=== PATIENT | male | born 1980 | race Caucasian/White ===

== ENCOUNTER 2025-04-04 15:05 | Inpatient (IN) | payer MEDICAID, OTHER ==
[~2025-04-04] VITALS: Ht 165.1 cm; Wt 71.5 kg
--- NOTE | 2025-04-04 15:59 | ED.PDOC ---
GI ASSESSMENT HPI Comments 45 y/o M, with no prior medical history presents to the ED for CC of abdominal pain. Patient states, he as been experiencing LLQ abdominal pain with associated nausea, vomiting, and diarrhea x1day. Patient denies any recent change in diet, hematemesis, or constipation. No other symptoms or modifying factors are present at this time. Chief Complaint: Abdominal Pain Time Seen by MD: 15:45 Reviewed Notes: Nurses Notes, Medications, Allergies Allergies: Coded Allergies: NO KNOWN ALLERGIES (Unverified , 04/04/25) Information Source: Patient Mode of Arrival: Ambulatory Timing: Days Duration: Since onset Prehospital treatment: None Quality: Cramping Vomitus: Watery Stool: Watery Severity: Moderate Recent: None Recent Hx of: None Pain Location: LLQ Associated sign and symptoms: Nausea, Vomiting, Diarrhea, Abdominal Pain Past Medical History PAST MEDICAL HISTORY: Denies Surgical History: Denies all surgeries Family History Family History: Unknown Social History Smoker: Other (VAPE) Alcohol: Denies ETOH Use Drugs: Denies Drug Use Lives In: Home Constitutional: denies: chills, diaphoresis, fatigue, fever, malaise, sweats, weakness, others EENTM: denies: blurred vision, double vision, ear bleeding, ear discharge, ear drainage, ear pain, ear ringing, eye pain, eye redness, hearing loss, mouth pain, mouth swelling, nasal discharge, nose bleeding, nose congestion, nose pain, photophobia, tearing, throat pain, throat swelling, voice changes, others Respiratory: denies: cough, hemoptysis, orthopnea, SOB at rest, shortness of breath, SOB with excertion, stridor, wheezing, others Cardiovascular: denies: chest pain, dizzy spells, diaphoresis, Dyspnea on exertion, edema, irregular heart beat, left arm pain, lightheadedness, palpitations, PND, syncope, others Gastrointestinal: reports: abdominal pain, nausea, vomiting; denies: abdomen distended, blood streaked bowels, constipated, diarrhea, dysphagia, difficulty swallowing, hematemesis, melena, poor appetite, poor fluid intake, rectal bleeding, rectal pain, others Genitourinary: denies: burning, dysuria, flank pain, frequency, hematuria, incontinence, penile discharge, penile sore, pain, testicle pain, testicle swelling, urgency, others Neurological: denies: dizziness, fainting, headache, left sided numbness, left sided weakness, numbness, paresthesia, pre-existing deficit, right sided numbness, right sided weakness, seizure, speech problems, tingling, tremors, weakness, others Musculoskeletal: denies: back pain, gout, joint pain, joint swelling, muscle pain, muscle stiffness, neck pain, others Integumetry: denies: bruises, change in color, change in hair/nails, dryness, laceration, lesions, lumps, rash, wounds, others Allergic/Immunocompromised: denies: Difficulty Healing, Frequent Infections, Hives, Itching, others Hematologic/Lymphatic: denies: anemia, blood clots, easy bleeding, easy bruising, swollen glands, others Endocrine: denies: excessive hunger, excessive sweating, excessive thirst, excessive urination, flushing, intolerance to cold, intolerance to heat, unexplained weight gain, unexplained weight loss, others Psychiatric: denies: anxiety, bipolar disorder, depression, hopeless, panic disorder, schizophrenia, sleepless, suicidal, others All Other Systems: Reviewed and Negative Physical Exam General Appearance: No Apparent Distress, Normal HEENT: Normal ENT Inspection, Pharynx Normal Neck: Full Range of Motion, Non-Tender, Normal, Normal Inspection Respiratory: Chest Non-Tender, Lungs Clear, No Accessory Muscle Use, No Respiratory Distress, Normal Breath Sounds Cardiovascular: No Edema, No Murmur, No Gallop, Normal Peripheral Pulses, Regular Rate/Rhythm Breast Exam: Deferred Gastrointestinal: LLQ, No Organomegaly, No Pulsatile Mass, Normal Bowel Sounds, Soft, Tenderness Genitalia: Deferred Pelvic: Deferred Rectal: Deferred Extremities: No calf tenderness, Normal capillary refill, Normal inspection, Normal range of motion, Non-tender, No pedal edema Musculoskeletal : Apperance: Normal Neurologic: Alert, sales trader II-XII nml as Tested, No Motor Deficits, Normal Affect, Normal Mood, No Sensory Deficits Cerebellar Function: Normal Reflexes: Normal Skin: Dry, Normal Color, Warm Lymphatic: No Adenopathy Was a procedure done? Was a procedure done?: No GI differential Dx Differential Diagnosis: Bowel Obstruction, Cholangitis, Constipation, Diverticular disease, Inflammatory BD X-Ray, Labs, Meds, VS Vital Signs Date Time Temp Pulse Resp B/P (MAP) Pulse Ox O2 Delivery O2 Flow Rate FiO2 10/7/25 17:14 105 18 129/82 (98) 98 04/04/25 17:14 97 18 98 Room Air 04/04/25 15:09 98.3 95 19 125/78 99 98.3 Lab Test 04/04/25 16:28 04/04/25 16:00 Range/Units Urine Color Yellow Yellow Urine Clarity Clear Clear Urine pH 5.5 5.0-9.0 Urine Specific [place] 1.027 1.001-1.035 Urine Protein Negative Negative Urine Ketones Negative Negative Urine Blood 2+ H Negative /uL Urine Nitrite Negative Negative Urine Bilirubin Negative Negative Urine Urobilinogen 3 H Negative mg/dL Urine Leukocyte Esterase Negative Negative /uL Urine RBC 5 0 - 3 /hpf Urine Microscopic WBC 1 0-3 /HPF Urine Squamous Epithelial Cells Few <5 /hpf Urine Bacteria None seen None Seen /hpf Urine Mucus Few None Seen Urine Glucose Normal Normal mg/dL White Blood Count 16.4 H 4.4-10.8 10^3/uL Red Blood Count 4.97 4.5-5.90 10^6/uL Hemoglobin 15.7 13.5-17.5 g/dL Hematocrit 44.1 41.0-53.0 % Mean Corpuscular Volume 88.7 80.0-100.0 fL Mean Corpuscular Hemoglobin 31.5 28.0-32.0 pg Mean Corpuscular Hemoglobin Concent 35.6 32.0-36.0 g/dL Red Cell Distribution Width 12.4 11.8-14.3 % Platelet Count 249 140-450 10^3/uL Mean Platelet Volume 6.6 L 6.9-10.8 fL Neutrophils (%) (Auto) 92.3 H 37.0-80.0 % Lymphocytes (%) (Auto) 2.5 L 10.0-50.0 % Monocytes (%) (Auto) 4.7 0.0-12.0 % Eosinophils (%) (Auto) 0.0 0.0-7.0 % Basophils (%) (Auto) 0.5 0.0-2.0 % Neutrophils # (Auto) 15.1 H 1.6-8.6 10 ^3/uL Lymphocytes # (Auto) 0.4 0.4-5.4 10 ^3/uL Monocytes # (Auto) 0.8 0-1.3 10 ^3/uL Eosinophils # (Auto) 0 0-0.8 10 ^3/uL Basophils # (Auto) 0.1 0-0.2 10 ^3/uL Nucleated Red Blood Cells 0.0 % Sodium Level 142 136-145 mmol/L Potassium Level 4.0 3.5-5.1 mmol/L Chloride Level 105 98-107 mmol/L Carbon Dioxide Level 27 20-31 mmol/L Anion Gap 10 5-15 Blood Urea Nitrogen 7 L 9-23 mg/dL Creatinine 1.05 0.700-1.30 mg/dL Glomerular Filtration Rate Calc 89 >90 mL/min BUN/Creatinine Ratio 6.7 L 10.0-20.0 Serum Glucose 112 H 74-106 mg/dL Calcium Level 9.5 8.7-10.4 mg/dL Total Bilirubin 0.9 0.2-1.0 mg/dL Aspartate Amino Transferase (AST) 17 13-40 U/L Alanine Aminotransferase (ALT) 13 7-40 U/L Alkaline Phosphatase 84 46-116 U/L Total Protein 7.4 5.7-8.2 g/dL Albumin 4.6 3.2-4.8 g/dL [place] [id number] Ph: [phone] DIAGNOSTIC IMAGING Diagnostic Imaging Report : [id number] Signed PATIENT: ANGELIC SAHU ACCT: [id number] UNIT: [id number] : 1980 LOC: ER ROOM / BED: / AGE / SEX: 45 / M ADM STATUS: REG ER SERVICE 1541 ORDERING PHYSICIAN: BASIL BOLANOS MD PROCEDURE(s): ABPL - CT AB PEL WO CON-NO ORAL OR IV REASON: llq pain ORDER NUMBER(s): [id number], ACCESSION NUMBER(s): [id number] EXAM: CT CT AB PEL WO CON-NO ORAL OR IV HISTORY: llq pain COMPARISON: None TECHNIQUE: Helical CT images of the abdomen and pelvis were performed without IV contrast. Sagittal and coronal reformatted images were obtained. This CT exam was performed using one or more of the following dose reduction techniques: Automated exposure control, adjustment of the mA and/or kv according to patient size, or the use of iterative reconstruction techniques. Radiation Dose: Abdomen/Pelvis: CTDIvol 7.38 mGy, DLP 196.24 mGy*cm. FINDINGS: CT abdomen: The lung bases are clear. The heart is not enlarged. There is mild wall thickening about the GE junction. The noncontrast liver, spleen, gallbladde r, pancreas, right kidney, and adrenal glands are unremarkable. There is a punctate nonobstructing left renal midpole calculus ( image 30, series 2). No abdominal aortic aneurysm. CT pelvis: No abnormal bowel dilatation or free air. There are sigmoid colon diverticula with fluid and fat stranding adjacent to the sigmoid colon, consistent with acute diverticulitis. There are small pockets of extraluminal gas without evidence of formed abscess at this time (images 56-64, series 2).. The appendix and urinary bladder are unremarkable. The prostate is mildly enlarged. There is mild lumbar degenerative disc disease. IMPRESSION: 1. Acute sigmoid diverticulitis with small pockets of extraluminal gas present, without evidence of formed pericolic abscess at this time. 2. Mild wall thickening about the GE junction may be inflammatory. 3. Nonobstructing left nephrolithiasis. 4. Mild prostatic enlargement. 5. No evidence of bowel obstruction, acute appendicitis, or other acute process in the abdomen or pelvis. ATED BY: JAGDEPE MATTHEWS MD DICTATED DATE/TIME: 04/04/251621 SIGNED BY: JAGDEEP MATTHEWS MD SIGNED DATE/TIME: 04/04/251621 CC: Time of 1ST Reevaluation: 16:05 Reevaluation 1ST: Unchanged Time of 2ND Reevaluation: 18:34 Reevaluation 2ND: Unchanged Patient Education/Counseling: Diagnosis, Treatment, Prognosis, Need For Follow Up Family Education/Counseling: No Family Present Comments This is a patient who presents with diverticulitis. He has elevated heart rate and leukocytosis. These are recognized at around 5:40 p.m.. of the above conditions.. Sepsis order was initiated. Patient will be admitted for treatment Additional Information The following tests were ordered, and results were reviewed by me: CBC, CMP, UA, CT ABD PEL I reviewed and agreed with the following test results read by other provider: CT ABD PEL I discussed treatments and results with medical personnel and: PATIENT Comprehensive systems review obtained and negative except for what is stated in the HPI. SEPSIS Sepsis Screen Date sepsis recognized/suspect: Apr 04, 2025 Time Sepsis recognized/suspect: 1509 Recent Procedure: No On Antibiotic Therapy: No Respiratory Rate >20: No Heart Rate >90: Yes Temp<36 C (96.8 F) or >38.3 C: No SBP <90 or MAP <65 mmHG: No New Acute Mental Status Change: No Is the patient on CPAP, BIPAP,: No Physician Orders Ct Ab Pel Wo Con-No Oral Or Iv (04/04/25 15:41) Vital Signs Date Time Temp Pulse Resp B/P (MAP) Pulse Ox O2 Delivery O2 Flow Rate FiO2 04/04/25 17:14 105 18 129/82 (98) 98 04/04/25 17:14 97 18 98 Room Air 04/04/25 15:09 98.3 95 19 125/78 99 98.3 Laboratory Tests Test 04/04/25 16:00 White Blood Count 16.4 10^3/uL (4.4-10.8) H Departure 1 Departure Time of Disposition: 18:34 Impression: Primary Impression: Diverticulitis of intestine Additional Impression: Sepsis Disposition: ADMITTED INPATIENT Admit to: Med Surg Condition: Serious Discharged With: Self Critical Care Note Critical Care Time?: Yes (55 min-critical care time only) Critical care comment: due to concerns for patient's condition deteriorating, the care required my highest level of attention and readiness to intervene. i assessed the patient's condition, ordered the proper tests and treatments, reassessed for response and reviewed the results. i communicated with medical personnel and formulated a plan of care. total critical care time does not include any procedures Stability Stability form required: No Heart Score Heart Score: Heart Score Response (Comments) Value History N/A 0 EKG N/A 0 Age N/A 0 Risk Factors N/A 0 Troponin N/A 0 Total 0 I personally scribed for BASIL BOLANOS MD ([email or web address]) on 04/04/25 at 15:59. Electronically submitted by Adrienne Sanchez ([email or web address]). I personally scribed for BASIL BOLANOS MD ([email or web address]) on 04/04/25 at 16:56. Electronically submitted by Adrienne Sanchez ([email or web address]). I personally scribed for BASIL BOLANOS MD ([email or web address]) on 04/04/25 at 16:56. Electronically submitted by Adrienne Sanchez ([email or web address]). BASIL BOLANOS MD Apr 04, 2025 15:59
[2025-04-04 16:07] LABS: Hematocrit 44.1 % (41.0-53.0); Hemoglobin 15.7 g/dL (13.5-17.5); Mean Corpuscular Hemoglobin 31.5 pg (28.0-32.0); Mean Corpuscular Volume 88.7 fL (80.0-100.0); Nucleated Red Blood Cells % 0.0 %
--- NOTE | 2025-04-04 16:24 | DVH ---
EXAM: CT CT AB PEL WO CON-NO ORAL OR IV HISTORY: llq pain COMPARISON: None TECHNIQUE: Helical CT images of the abdomen and pelvis were performed without IV contrast. Sagittal a nd coronal reformatted images were obtained. This CT exam was performed using one or more of the foll owing dose reduction techniques: Automated exposure control, adjustment of the mA and/or kv according to patient size, or the use of iterative reconstruction techniques. Radiation Dose: Abdomen/Pelvis: CTDIvol 7.38 mGy, DLP 196.24 mGy*cm. FINDINGS: CT abdomen: The lung bases are clear. The heart is not enlarged. There is mild wall thickening about the GE junction. The noncontrast liver, spleen, gallbladder, pancreas, right kidney, and adrenal glan ds are unremarkable. There is a punctate nonobstructing left renal midpole calculus ( image 30, serie s 2). No abdominal aortic aneurysm. CT pelvis: No abnormal bowel dilatation or free air. There are sigmoid colon diverticula with fluid a nd fat stranding adjacent to the sigmoid colon, consistent with acute diverticulitis. There are smal l pockets of extraluminal gas without evidence of formed abscess at this time (images 56-64, series 2 ).. The appendix and urinary bladder are unremarkable. The prostate is mildly enlarged. There is mild lumbar degenerative disc disease. IMPRESSION: 1. Acute sigmoid diverticulitis with small pockets of extraluminal gas present, without evidence of f ormed pericolic abscess at this time. 2. Mild wall thickening about the GE junction may be inflammatory. 3. Nonobstructing left nephrolithiasis. 4. Mild prostatic enlargement. 5. No evidence of bowel obstruction, acute appendicitis, or other acute process in the abdomen or pel vis.
[2025-04-04 16:27] LABS: Alanine Aminotransferase 13 U/L (7-40); Albumin 4.6 g/dL (3.2-4.8); Alkaline Phosphatase 84 U/L (46-116); Anion Gap 10 (5-15); BUN/Creatinine Ratio 6.7 (10.0-20.0); Bilirubin, Total 0.9 mg/dL (0.2-1.0); Blood Urea Nitrogen 7 mg/dL (9-23); Calcium 9.5 mg/dL (8.7-10.4); Carbon Dioxide 27 mmol/L (20-31); Chloride 105 mmol/L (98-107); Glucose 112 mg/dL (74-106); Potassium 4.0 mmol/L (3.5-5.1); Sodium 142 mmol/L (136-145); Total Protein 7.4 g/dL (5.7-8.2)
[2025-04-04 16:49] LABS: Urine Protein, UAD Negative (Negative)
[2025-04-04] MEDS: ONDANSETRON HCL 4 MG/2 ML VIAL IV ONE (19:19)
[2025-04-04] MEDS: MORPHINE SULFATE 4 MG/ML SYR/VIAL IV ONE (19:20)
[2025-04-04] MEDS ORDERED: ACETAMINOPHEN 325 MG TAB PO PRN (20:15)
[2025-04-04] MEDS: CEFEPIME 1GM/50ML 50 ML IV ONE ×2 (20:24→20:38)
[2025-04-04 21:36] VITALS: BP 114/69; PULSE 105; RESP 17; TEMP 98; O2SAT 97
[2025-04-04] MEDS: HYDROcodone-ACET 5/325MG TAB PO PRN (21:48)
--- NOTE | 2025-04-04 22:03 | DVHHP2 ---
History of Present Illness Reason for Visit: Abdominal pain History of Present Illness 45-year-old male presents for evaluation of abdominal pain. Patient endorses a one day history of left lower quadrant cramp like abdominal pain with associated nausea and vomiting. No fever or chills. No other acute complaints. Past Medical History Diverticulitis Past Surgical History Denies Family History Noncontributory Smoke: Quit (Vape) ALCOHOL: none Drugs: None Lives: with Family Review of Systems Review of Systems Review of systems are currently negative otherwise addressed in HPI. Allergies: Coded Allergies: NO KNOWN ALLERGIES (Unverified , 04/04/25) Medications Current Medications Medications Dose Ordered Sig/Juany Route Start Time Stop Time Status Last Admin Dose Admin Cefepime HCl 50 ml @ 12.5 mls/hr Q8HR IV 04/05/25 06:00 Ceftriaxone Sodium 50 ml @ 100 mls/hr DAILY@09 IV 04/05/25 09:00 Metronidazole 100 ml @ 100 mls/hr Q8HR IV 04/04/25 22:00 Acetaminophen/ Hydrocodone Bitart 1 tab Q4HP PRN PO 04/04/25 20:15 04/04/25 21:48 1 TAB Ondansetron HCl 4 mg Q4HP PRN IV 04/04/25 20:15 Acetaminophen 650 mg Q6HP PRN PO 04/04/25 20:15 Morphine Sulfate 2 mg Q6HPRN PRN IV 04/04/25 20:30 Exam Vital Signs Vital Signs Date Time Temp Pulse Resp B/P (MAP) Pulse Ox O2 Delivery O2 Flow Rate FiO2 04/04/25 21:36 98.0 105 17 114/69 (84) 97 98.0 04/04/25 17:14 Room Air Exam Gen: 45-year-old male in mild distress Skin: Warm, dry, normal color and texture, no rash. HEENT: Normocephalic atraumatic, mucous membranes moist and pink. Neck: Cervical and supraclavicular nodes normal without enlargement, trachea is midline, thyroid gland is normal without masses. Pulmonary: Clear to auscultation and percussion bilaterally. Cardiac: Regular rate and rhythm. No murmur Abdomen: Soft, left lower quadrant tenderness, nondistended, bowel sounds present all 4 quadrants, no guarding, no rigidity, no organomegaly. Extremities: No cyanosis, clubbing, no edema Neuro: Cranial nerves II through XII grossly intact, normal affect and speech, no focal motor deficits. Labs/Xrays ORDERING PHYSICIAN: BASIL BOLANOS MD PROCEDURE(s): ABPL - CT AB PEL WO CON-NO ORAL OR IV REASON: llq pain ORDER NUMBER(s): [id number], ACCESSION NUMBER(s): [id number] EXAM: CT CT AB PEL WO CON-NO ORAL OR IV HISTORY: llq pain COMPARISON: None TECHNIQUE: Helical CT images of the abdomen and pelvis were performed without IV contrast. Sagittal and coronal reformatted images were obtained. This CT exam was performed using one or more of the following dose reduction techniques: Automated exposure control, adjustment of the mA and/or kv according to patient size, or the use of iterative reconstruction techniques. Radiation Dose: Abdomen/Pelvis: CTDIvol 7.38 mGy, DLP 196.24 mGy*cm. FINDINGS: CT abdomen: The lung bases are clear. The heart is not enlarged. There is mild wall thickening about the GE junction. The noncontrast liver, spleen, gallbladder, pancreas, right kidney, and adrenal glands are unremarkable. There is a punctate nonobstructing left renal midpole calculus ( image 30, series 2). No abdominal aortic aneurysm. CT pelvis: No abnormal bowel dilatation or free air. There are sigmoid colon diverticula with fluid and fat stranding adjacent to the sigmoid colon, consistent with acute diverticulitis. There are small pockets of extraluminal gas without evidence of formed abscess at this time (images 56-64, series 2).. The appendix and urinary bladder are unremarkable. The prostate is mildly enlarged. There is mild lumbar degenerative disc disease. IMPRESSION: 1. Acute sigmoid diverticulitis with small pockets of extraluminal gas present, without evidence of formed pericolic abscess at this time. 2. Mild wall thickening about the GE junction may be inflammatory. 3. Nonobstructing left nephrolithiasis. 4. Mild prostatic enlargement. 5. No evidence of bowel obstruction, acute appendicitis, or other acute process in the abdomen or pelvis. Labs Test 04/04/25 18:46 04/04/25 16:28 04/04/25 16:00 Range/Units Lactic Acid Level 1.8 0.4-2.0 mmol/L Urine Color Yellow Yellow Urine Clarity Clear Clear Urine pH 5.5 5.0-9.0 Urine Specific [place] 1.027 1.001-1.035 Urine Protein Negative Negative Urine Ketones Negative Negative Urine Blood 2+ H Negative /uL Urine Nitrite Negative Negative Urine Bilirubin Negative Negative Urine Urobilinogen 3 H Negative mg/dL Urine Leukocyte Esterase Negative Negative /uL Urine RBC 5 0 - 3 /hpf Urine Microscopic WBC 1 0-3 /HPF Urine Squamous Epithelial Cells Few <5 /hpf Urine Bacteria None seen None Seen /hpf Urine Mucus Few None Seen Urine Glucose Normal Normal mg/dL White Blood Count 16.4 H 4.4-10.8 10^3/uL Red Blood Count 4.97 4.5-5.90 10^6/uL Hemoglobin 15.7 13.5-17.5 g/dL Hematocrit 44.1 41.0-53.0 % Mean Corpuscular Volume 88.7 80.0-100.0 fL Mean Corpuscular Hemoglobin 31.5 28.0-32.0 pg Mean Corpuscular Hemoglobin Concent 35.6 32.0-36.0 g/dL Red Cell Distribution Width 12.4 11.8-14.3 % Platelet Count 249 140-450 10^3/uL Mean Platelet Volume 6.6 L 6.9-10.8 fL Neutrophils (%) (Auto) 92.3 H 37.0-80.0 % Lymphocytes (%) (Auto) 2.5 L 10.0-50.0 % Monocytes (%) (Auto) 4.7 0.0-12.0 % Eosinophils (%) (Auto) 0.0 0.0-7.0 % Basophils (%) (Auto) 0.5 0.0-2.0 % Neutrophils # (Auto) 15.1 H 1.6-8.6 10 ^3/uL Lymphocytes # (Auto) 0.4 0.4-5.4 10 ^3/uL Monocytes # (Auto) 0.8 0-1.3 10 ^3/uL Eosinophils # (Auto) 0 0-0.8 10 ^3/uL Basophils # (Auto) 0.1 0-0.2 10 ^3/uL Nucleated Red Blood Cells 0.0 % Sodium Level 142 136-145 mmol/L Potassium Level 4.0 3.5-5.1 mmol/L Chloride Level 105 98-107 mmol/L Carbon Dioxide Level 27 20-31 mmol/L Anion Gap 10 5-15 Blood Urea Nitrogen 7 L 9-23 mg/dL Creatinine 1.05 0.700-1.30 mg/dL Glomerular Filtration Rate Calc 89 >90 mL/min BUN/Creatinine Ratio 6.7 L 10.0-20.0 Serum Glucose 112 H 74-106 mg/dL Calcium Level 9.5 8.7-10.4 mg/dL Total Bilirubin 0.9 0.2-1.0 mg/dL Aspartate Amino Transferase (AST) 17 13-40 U/L Alanine Aminotransferase (ALT) 13 7-40 U/L Alkaline Phosphatase 84 46-116 U/L Total Protein 7.4 5.7-8.2 g/dL Albumin 4.6 3.2-4.8 g/dL SEPSIS Sepsis Screen Date sepsis recognized/suspect: Apr 04, 2025 Time Sepsis recognized/suspect: 1509 Recent Procedure: No On Antibiotic Therapy: No Respiratory Rate >20: No Heart Rate >90: Yes Temp<36 C (96.8 F) or >38.3 C: No SBP <90 or MAP <65 mmHG: No New Acute Mental Status Change: No Is the patient on CPAP, BIPAP,: No Physician Orders Ct Ab Pel Wo Con-No Oral Or Iv (04/04/25 15:41) Urinalysis (04/04/25 18:33) Accucheck (04/04/25 18:33) Blood Culture (04/04/25 18:33) Notify Md If Map <65 Or Bp<90 (04/04/25 18:33) If Map<65 Start Vasopressor (04/04/25 18:33) Sepsis Reassesment After Fluid (04/04/25 19:33) Cefepime 1gm/50ml (Maxipime 1gm/50ml) (04/05/25 06:00) Admit (04/04/25 19:59) Ceftriaxone 1gm/50ml (Rocephin) (04/05/25 09:00) Metronidazole 500mg/100ml (Flagyl 500mg/ (04/04/25 22:00) * Gi [facility] Closing Coordinator (04/04/25 20:02) Hydrocodone-Acet 5/325mg Tab ([place] 5/32 (04/04/25 20:15) Ondansetron Hcl (Zofran) (04/04/25 20:15) Complete Blood Count (04/05/25 04:00) Condition: Stable (04/04/25 20:02) Acetaminophen Tablet (Tylenol Tablet) (04/04/25 20:15) Clear Liq Diet (04/05/25 Breakfast) Bedrest With Bathroom Privileg (04/04/25 20:02) Basic Metabolic Panel (04/05/25 04:00) Morphine Sulfate Injection (04/04/25 20:30) Vital Signs Date Time Temp Pulse Resp B/P (MAP) Pulse Ox O2 Delivery O2 Flow Rate FiO2 04/04/25 21:36 98.0 105 17 114/69 (84) 97 98.0 04/04/25 20:33 98.6 110 18 123/82 (96) 97 98.6 04/04/25 19:20 98 18 113/60 04/04/25 19:09 98 18 113/60 (77) 100 04/04/25 17:14 105 18 129/82 (98) 98 04/04/25 17:14 97 18 98 Room Air 04/04/25 15:09 98.3 95 19 125/78 99 98.3 Laboratory Tests Test 04/04/25 16:00 04/04/25 18:46 White Blood Count 16.4 10^3/uL (4.4-10.8) H Lactic Acid Level 1.8 mmol/L (0.4-2.0) Medications Medications Dose Ordered Sig/Juany Route Start Time Stop Time Status Last Admin Dose Admin Acetaminophen/ Hydrocodone Bitart 1 tab Q4HP PRN PO 04/04/25 20:15 04/04/25 21:48 1 TAB Cefepime HCl 50 ml @ 50 mls/hr ONCE ONCE IV 04/04/25 19:15 04/04/25 20:14 DC 04/04/25 20:24 50 MLS/HR Metronidazole 100 ml @ 100 mls/hr ONCE ONCE IV 04/04/25 18:45 04/04/25 19:44 DC 04/04/25 19:20 100 MLS/HR Morphine Sulfate 4 mg ONCE ONCE IV 04/04/25 18:45 10/7/25 18:46 DC 04/04/25 19:20 4 MG Ondansetron HCl 4 mg ONCE ONCE IV 04/04/25 18:45 04/04/25 18:46 DC 04/04/25 19:19 4 MG Assessment/Plan Assessment/Plan Assessment Acute diverticulitis Acute abdominal pain Leukocytosis Acute kidney injury Plan Admit the patient to Med surge to the hospitalist GI consult Clear liquid diet Rocephin/Flagyl Pain management Continue treatment per orders. Plan discussed with: Patient My Orders Orders - XENA JUSTICE Procedure Category Date Status Time Admit ADMIT 04/04/25 Transmitted 19:59 Ceftriaxone 1gm/50ml PHA 04/05/25 In Process (Rocephin) 09:00 Metronidazole PHA 04/04/25 In Process 500mg/100ml (Flagyl 22:00 * [facility] Closing Coordinator CONS 04/04/25 Transmitted 20:02 Hydrocodone-Acet PHA 04/04/25 In Process 5/325mg Tab ([place] 20:15 Ondansetron Hcl PHA 04/04/25 In Process (Zofran) 20:15 Complete Blood Count LAB 04/05/25 Verified 04:00 Condition: Stable ROSANNA 04/04/25 In Process 20:02 Acetaminophen Tablet PHA 04/04/25 In Process (Tylenol Tablet) 20:15 Clear Liq Diet DIET 04/05/25 Transmitted Breakfast Bedrest With Bathroom ROSANNA 04/04/25 In Process Privileg 20:02 Basic Metabolic Panel LAB 04/05/25 Verified 04:00 Morphine Sulfate PHA 04/04/25 In Process Injection 20:30 Date of Service: Apr 04, 2025 Billing Provider: XENA JUSTICE Common Visit Codes: [id number] INP/OBS CARE (MOD) XENA JUSTICE Apr 04, 2025 22:03
[2025-04-04 22:14] VITALS: RESP 15
[2025-04-04] MEDS: LACTATED RINGER'S 1,850 ML IV ONE (22:18)
[2025-04-05] VITALS (9 sets, daily range): BP systolic 111–130; BP diastolic 65–79; PULSE 82–97; RESP 16–18; TEMP 97.9–98.9; O2SAT 95–98
[2025-04-05] MEDS: CEFEPIME 1GM/50ML 50 ML IV SCH (05:44)
[2025-04-05 07:07] LABS: Hematocrit 38.3 % (41.0-53.0); Hemoglobin 13.8 g/dL (13.5-17.5); Mean Corpuscular Hemoglobin 32.1 pg (28.0-32.0); Mean Corpuscular Volume 89.2 fL (80.0-100.0); Nucleated Red Blood Cells % 0.0 %
[2025-04-05 07:15] LABS: Chloride 104 mmol/L (98-107); Potassium 3.9 mmol/L (3.5-5.1); Sodium 141 mmol/L (136-145)
[2025-04-05 07:16] LABS: Anion Gap 10 (5-15); Calcium 9.1 mg/dL (8.7-10.4); Carbon Dioxide 27 mmol/L (20-31)
[2025-04-05 07:21] LABS: BUN/Creatinine Ratio 8.8 (10.0-20.0)
[2025-04-05 07:24] LABS: Blood Urea Nitrogen 9 mg/dL (9-23); Glucose 110 mg/dL (74-106)
[2025-04-05] MEDS: MORPHINE SULFATE 4 MG/ML SYR/VIAL IV PRN (09:34)
--- NOTE | 2025-04-05 13:40 | DVHINCON2 ---
GI Consult Consult Note GI consult note Date of Consultation: 04/05/2025 Chief Complaint: Diverticulitis Referring Physician: Michel CABRERA H&P: 45-year-old male admitted with complains of abdominal pain mostly in the left lower quadrant for one day. Patient had some nausea and vomiting yesterday none today. Denies fevers or chills. Had similar episode which was milder in nature many years ago. No colonoscopy in past Past Medical History: Diverticulitis Past Surgical History: Denies Social History: NO smoking, drinking ETOH and use of illegal drugs. Family History: Noncontributory Review of Systems: Constitutional: no fever, chill, weight loss HEENT: no eye pain, no hearing loss, no oral lesion, no scleral icterus Heart: no chest pain, no chest pressure Lung: no cough, no dyspnea with exertion Abdomen: see HPI Physical exam: General: NAD, AAOX3 Chest: lung good clear to auscultation Heart: RRR, no murmur Abdomen: non-distended, moderate left lower quadrant tenderness to palpation, +BS Labs: Labs Test 04/05/25 06:41 04/04/25 18:46 04/04/25 16:28 04/04/25 16:00 Range/Units White Blood Count 12.9 H 4.4-10.8 10^3/uL Red Blood Count 4.29 L 4.5-5.90 10^6/uL Hemoglobin 13.8 13.5-17.5 g/dL Hematocrit 38.3 #L 41.0-53.0 % Mean Corpuscular Volume 89.2 80.0-100.0 fL Mean Corpuscular Hemoglobin 32.1 H 28.0-32.0 pg Mean Corpuscular Hemoglobin Concent 36.0 32.0-36.0 g/dL Red Cell Distribution Width 12.5 11.8-14.3 % Platelet Count 179 140-450 10^3/uL Mean Platelet Volume 6.8 L 6.9-10.8 fL Neutrophils (%) (Auto) 86.7 H 37.0-80.0 % Lymphocytes (%) (Auto) 7.5 L 10.0-50.0 % Monocytes (%) (Auto) 5.5 0.0-12.0 % Eosinophils (%) (Auto) 0.1 0.0-7.0 % Basophils (%) (Auto) 0.2 0.0-2.0 % Neutrophils # (Auto) 11.2 H 1.6-8.6 10 ^3/uL Lymphocytes # (Auto) 1.0 0.4-5.4 10 ^3/uL Monocytes # (Auto) 0.7 0-1.3 10 ^3/uL Eosinophils # (Auto) 0 0-0.8 10 ^3/uL Basophils # (Auto) 0 0-0.2 10 ^3/uL Nucleated Red Blood Cells 0.0 % Sodium Level 141 136-145 mmol/L Potassium Level 3.9 3.5-5.1 mmol/L Chloride Level 104 98-107 mmol/L Carbon Dioxide Level 27 20-31 mmol/L Anion Gap 10 5-15 Blood Urea Nitrogen 9 9-23 mg/dL Creatinine 1.02 0.700-1.30 mg/dL Glomerular Filtration Rate Calc 92 >90 mL/min BUN/Creatinine Ratio 8.8 L 10.0-20.0 Serum Glucose 110 H 74-106 mg/dL Calcium Level 9.1 8.7-10.4 mg/dL Lactic Acid Level 1.8 0.4-2.0 mmol/L Urine Color Yellow Yellow Urine Clarity Clear Clear Urine pH 5.5 5.0-9.0 Urine Specific [place] 1.027 1.001-1.035 Urine Protein Negative Negative Urine Ketones Negative Negative Urine Blood 2+ H Negative /uL Urine Nitrite Negative Negative Urine Bilirubin Negative Negative Urine Urobilinogen 3 H Negative mg/dL Urine Leukocyte Esterase Negative Negative /uL Urine RBC 5 0 - 3 /hpf Urine Microscopic WBC 1 0-3 /HPF Urine Squamous Epithelial Cells Few <5 /hpf Urine Bacteria None seen None Seen /hpf Urine Mucus Few None Seen Urine Glucose Normal Normal mg/dL Total Bilirubin 0.9 0.2-1.0 mg/dL Aspartate Amino Transferase (AST) 17 13-40 U/L Alanine Aminotransferase (ALT) 13 7-40 U/L Alkaline Phosphatase 84 46-116 U/L Total Protein 7.4 5.7-8.2 g/dL Albumin 4.6 3.2-4.8 g/dL Imaging: CT abdomen pelvis IMPRESSION: 1. Acute sigmoid diverticulitis with small pockets of extraluminal gas present, without evidence of formed pericolic abscess at this time. 2. Mild wall thickening about the GE junction may be inflammatory. 3. Nonobstructing left nephrolithiasis. 4. Mild prostatic enlargement. 5. No evidence of bowel obstruction, acute appendicitis, or other acute process in the abdomen or pelvis. Assessment: Acute diverticulitis Abdominal pain Leukocytosis Plan: Discussed with Dr. Denney IV antibiotic Clear liquid diet only We will continue to monitor patient Outpatient GI follow-up for elective colonoscopy when symptoms improve Thank you for this consult Date of Service: Apr 05, 2025 Billing Provider: CAREY THAKKAR Common Visit Codes: CONSULT ONLY Consultation Codes: [id number] CONSULT <60MIN CAREY THAKKAR Apr 05, 2025 13:40
--- NOTE | 2025-04-05 14:01 | MEDREC ---
[facility] ASP Intervention Section I [facility] ASP Intervention: Duplication of therapy (Patient currently on both ceftriaxone and cefepime. Due to duplication of therapy, please consider discontinuing one when clinically appropriate.) ALEKS IBARRA [facility] RESIDENT Apr 05, 2025 14:01
--- NOTE | 2025-04-05 16:06 | DVHPN2 ---
Subjective I am assuming the care of the patient from today onwards patient is here for diverticulitis currently on IV antibiotics and clear liquid diet. Changes from previous H/P or p: No Changes Objective Vitals Vital Signs Date Time Temp Pulse Resp B/P (MAP) Pulse Ox O2 Delivery O2 Flow Rate FiO2 04/05/25 15:39 75 16 113/80 04/05/25 14:36 97.9 97 97.9 04/05/25 08:00 Room Air* 0 21 Intake/Output Intake and Output 04/05/25 07:00 Intake Total 2300 ml Balance 2300 ml Intake Oral 300 ml IV Total 2000 ml # Voids 3 Exam HEENT pupils are reactive Neck is supple CV is S1-S2 regular rate and rhythm Respiratory diminished breath sound bases GI posterior bowel sounds soft nondistended mildly tender in the left lower quadrant with a posterior guarding no rigidity 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 Medications Current Medications Medications Dose Ordered Sig/Juany Route Start Time Stop Time Status Last Admin Dose Admin Cefepime HCl 50 ml @ 12.5 mls/hr Q8HR IV 04/05/25 06:00 Hold 04/05/25 05:44 12.5 MLS/HR Ceftriaxone Sodium 50 ml @ 100 mls/hr DAILY@09 IV 04/05/25 09:00 04/05/25 09:23 100 MLS/HR Acetaminophen/ Hydrocodone Bitart 1 tab Q4HP PRN PO 04/04/25 20:15 04/05/25 03:31 1 TAB Ondansetron HCl 4 mg Q4HP PRN IV 04/04/25 20:15 Acetaminophen 650 mg Q6HP PRN PO 04/04/25 20:15 Morphine Sulfate 2 mg Q6HPRN PRN IV 04/04/25 20:30 04/05/25 15:39 2 MG Metronidazole 100 ml @ 100 mls/hr Q8H IV 04/05/25 03:30 04/05/25 11:12 100 MLS/HR Laboratory Results Laboratory Tests 04/05/25 06:41 Chemistry Test 04/05/25 06:41 Calcium Level 9.1 mg/dL (8.7-10.4) Urinalysis Test 04/04/25 16:28 Urine Color Yellow (Yellow) Urine Clarity Clear (Clear) Urine pH 5.5 (5.0-9.0) Urine Specific [place] 1.027 (1.001-1.035) Urine Protein Negative (Negative) Urine Ketones Negative (Negative) Urine Blood 2+ /uL (Negative) H Urine Nitrite Negative (Negative) Urine Bilirubin Negative (Negative) Urine Urobilinogen 3 mg/dL (Negative) H Urine Leukocyte Esterase Negative /uL (Negative) Urine RBC 5 /hpf (0 - 3) Urine Microscopic WBC 1 /HPF (0-3) Urine Squamous Epithelial Cells Few /hpf (<5) Urine Bacteria None seen /hpf (None Seen) Urine Mucus Few (None Seen) Urine Glucose Normal mg/dL (Normal) Assessment/Plan Assessment/Plan 45-year-old male with a previous history of mild diverticulitis years ago presented to the hospital with a left lower quadrant abdominal pain associated with the nausea found to have 1. Acute sigmoid colon diverticulitis with some paucity of air 2. Leukocytosis likely reactive 3.Previous history of mild diverticulitis in the past years ago 4. History of tobacco use disorder -IV antibiotics, clear liquid diet as tolerated, GI consult appreciated, patient needs outpatient colonoscopy in 6-8 weeks. Plan discussed with: Patient Date of Service: Apr 05, 2025 Billing Provider: SAIGE TANNER MD Common Visit Codes: [id number] INP/OBS CARE(MOD) SAIGE TANNER MD Apr 05, 2025 16:06
[2025-04-05] MEDS: ONDANSETRON HCL 4 MG/2 ML VIAL IV PRN (21:44)
[2025-04-06] VITALS (8 sets, daily range): BP systolic 104–133; BP diastolic 59–91; PULSE 70–103; RESP 16–19; TEMP 96.6–99.2; O2SAT 16–97
--- NOTE | 2025-04-06 14:11 | DVHPN2 ---
Subjective Patient admits to improving abdominal pain Only able to tolerate small sips of his clear liquid diet at a time, otherwise having worsening GERD symptoms No nausea or vomiting. Denies hematemesis Patient's last bowel movement today which is still loose in nature Changes from previous H/P or p: No Changes Objective Vitals Vital Signs Date Time Temp Pulse Resp B/P (MAP) Pulse Ox O2 Delivery O2 Flow Rate FiO2 04/06/25 09:00 98.1 81 16 128/81 (97) 16 98.1 04/05/25 20:29 Room Air* 0 21 Intake/Output Intake and Output 04/06/25 06:59 Intake Total 1150 ml Output Total 750 ml Balance 400 ml Intake Oral 200 ml IV Total 350 ml Other 600 ml Output Urine Total 750 ml # Voids 3 Exam General: NAD, AAOX3 Chest: lung good clear to auscultation Heart: RRR, no murmur Abdomen: non-distended, mild to moderate left lower quadrant tenderness to palpation, +BS Medications Current Medications Medications Dose Ordered Sig/Juany Route Start Time Stop Time Status Last Admin Dose Admin Cefepime HCl 50 ml @ 12.5 mls/hr Q8HR IV 04/05/25 06:00 Hold 04/05/25 05:44 12.5 MLS/HR Ceftriaxone Sodium 50 ml @ 100 mls/hr DAILY@09 IV 04/05/25 09:00 04/06/25 10:53 100 MLS/HR Acetaminophen/ Hydrocodone Bitart 1 tab Q4HP PRN PO 04/04/25 20:15 04/05/25 03:31 1 TAB Ondansetron HCl 4 mg Q4HP PRN IV 04/04/25 20:15 04/06/25 03:51 4 MG Acetaminophen 650 mg Q6HP PRN PO 04/04/25 20:15 Morphine Sulfate 2 mg Q6HPRN PRN IV 04/04/25 20:30 04/06/25 04:00 2 MG Metronidazole 100 ml @ 100 mls/hr Q8H IV 04/05/25 03:30 04/06/25 10:53 100 MLS/HR Laboratory Results Laboratory Tests 04/05/25 06:41 Urinalysis Test 04/04/25 16:28 Urine Color Yellow (Yellow) Urine Clarity Clear (Clear) Urine pH 5.5 (5.0-9.0) Urine Specific [place] 1.027 (1.001-1.035) Urine Protein Negative (Negative) Urine Ketones Negative (Negative) Urine Blood 2+ /uL (Negative) H Urine Nitrite Negative (Negative) Urine Bilirubin Negative (Negative) Urine Urobilinogen 3 mg/dL (Negative) H Urine Leukocyte Esterase Negative /uL (Negative) Urine RBC 5 /hpf (0 - 3) Urine Microscopic WBC 1 /HPF (0-3) Urine Squamous Epithelial Cells Few /hpf (<5) Urine Bacteria None seen /hpf (None Seen) Urine Mucus Few (None Seen) Urine Glucose Normal mg/dL (Normal) Microbiology Microbiology Date/Time Source Procedure Growth Status 04/04/25 18:46 Blood Blood Culture - Preliminary NO GROWTH AFTER 24 HOURS OF INCUBATION. Resulted Labs and/or images reviewed: Labs reviewed by me, Image(s) reviewed by me Assessment/Plan Assessment/Plan Acute diverticulitis Abdominal pain Leukocytosis GERD Plan Discussed with Dr. Denney IV antibiotics Protonix and Carafate We will continue to monitor patient Plan discussed with: Patient Date of Service: Apr 06, 2025 Billing Provider: CAREY THAKKAR Common Visit Codes: [id number] INP/OBS CARE(HIGH) CAREY THAKKAR Apr 06, 2025 14:11
[2025-04-06] MEDS ORDERED: MAALOX PLUS or MAALOX 30 ML GT PRN (15:00)
--- NOTE | 2025-04-06 16:37 | DVHPN2 ---
Subjective Patient is tolerating clear liquid diet but complaining of epigastric [place]. Changes from previous H/P or p: No Changes Objective Vitals Vital Signs Date Time Temp Pulse Resp B/P (MAP) Pulse Ox O2 Delivery O2 Flow Rate FiO2 04/06/25 13:00 96.6 70 16 123/72 (89) 94 96.6 04/06/25 08:15 Room Air* 0 21 Intake/Output Intake and Output 04/06/25 07:00 Intake Total 1150 ml Output Total 750 ml Balance 400 ml Intake Oral 200 ml IV Total 350 ml Other 600 ml Output Urine Total 750 ml # Voids 3 Exam HEENT pupils are reactive Neck is supple CV is S1-S2 regular rate and rhythm Respiratory diminished breath sound bases GI posterior bowel sounds soft nondistended mildly tender in the left lower quadrant with a posterior guarding no rigidity Extremity 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 Medications Current Medications Medications Dose Ordered Sig/Juany Route Start Time Stop Time Status Last Admin Dose Admin Cefepime HCl 50 ml @ 12.5 mls/hr Q8HR IV 04/05/25 06:00 Hold 04/05/25 05:44 12.5 MLS/HR Ceftriaxone Sodium 50 ml @ 100 mls/hr DAILY@09 IV 04/05/25 09:00 04/06/25 10:53 100 MLS/HR Acetaminophen/ Hydrocodone Bitart 1 tab Q4HP PRN PO 04/04/25 20:15 04/05/25 03:31 1 TAB Ondansetron HCl 4 mg Q4HP PRN IV 04/04/25 20:15 04/06/25 03:51 4 MG Acetaminophen 650 mg Q6HP PRN PO 04/04/25 20:15 Morphine Sulfate 2 mg Q6HPRN PRN IV 04/04/25 20:30 04/06/25 04:00 2 MG Metronidazole 100 ml @ 100 mls/hr Q8H IV 04/05/25 03:30 04/06/25 10:53 100 MLS/HR Pantoprazole Sodium 40 mg DAILY IV 04/07/25 10:00 Pantoprazole Sodium 40 mg DAILY IV 04/07/25 10:00 Al Hydrox/Mg Hydrox/Simethicone 30 ml Q8HP PRN GT 04/06/25 15:00 Laboratory Results Laboratory Tests 04/05/25 06:41 Urinalysis Test 04/04/25 16:28 Urine Color Yellow (Yellow) Urine Clarity Clear (Clear) Urine pH 5.5 (5.0-9.0) Urine Specific [place] 1.027 (1.001-1.035) Urine Protein Negative (Negative) Urine Ketones Negative (Negative) Urine Blood 2+ /uL (Negative) H Urine Nitrite Negative (Negative) Urine Bilirubin Negative (Negative) Urine Urobilinogen 3 mg/dL (Negative) H Urine Leukocyte Esterase Negative /uL (Negative) Urine RBC 5 /hpf (0 - 3) Urine Microscopic WBC 1 /HPF (0-3) Urine Squamous Epithelial Cells Few /hpf (<5) Urine Bacteria None seen /hpf (None Seen) Urine Mucus Few (None Seen) Urine Glucose Normal mg/dL (Normal) Microbiology Microbiology Date/Time Source Procedure Growth Status 04/04/25 18:46 Blood Blood Culture - Preliminary NO GROWTH AFTER 24 HOURS OF INCUBATION. Resulted Assessment/Plan Assessment/Plan 45-year-old male with a previous history of mild diverticulitis years ago presented to the hospital with a left lower quadrant abdominal pain associated with the nausea found to have 1. Acute sigmoid colon diverticulitis with some paucity of air 2. Leukocytosis likely reactive 3.Previous history of mild diverticulitis in the past years ago 4. History of tobacco use disorder 5. GERD -IV antibiotics, clear liquid diet as tolerated, GI consult appreciated, patient needs outpatient colonoscopy in 6-8 weeks. -add Protonix Plan discussed with: Patient My Orders Orders - SAIGE TANNER MD Procedure Category Date Status Time Pantoprazole PHA 04/07/25 In Process (Protonix) 10:00 Alum & Mag PHA 04/06/25 In Process Hydrox-Simethicone 15:00 Date of Service: Apr 06, 2025 Billing Provider: SAIGE TANNER MD Common Visit Codes: [id number] INP/OBS CARE(MOD) SAIGE TANNER MD Apr 06, 2025 16:37
[2025-04-06] MEDS: MAALOX PLUS or MAALOX 30 ML PO PRN (20:17)
[2025-04-07 01:00] VITALS: BP 114/83; PULSE 86; RESP 18; TEMP 97.2; O2SAT 96
[2025-04-07 05:00] VITALS: BP 139/70; PULSE 88; RESP 19; TEMP 97.6; O2SAT 96
[2025-04-07 08:00] VITALS: PULSE 86; RESP 18; O2SAT 97
[2025-04-07 08:25] VITALS: BP 118/89; PULSE 86; RESP 17; TEMP 98.6; O2SAT 95
[2025-04-07] MEDS: PANTOPRAZOLE 40 MG/10 ML VIAL INJ IV SCH ×2 (10:00)
[2025-04-07 12:55] VITALS: BP 129/85; PULSE 92; RESP 17; TEMP 97.9; O2SAT 95
--- NOTE | 2025-04-07 14:03 | DVHPN2 ---
Subjective Patient admits to decreased abdominal pain Patient was able to eat a sandwich with no increased abdominal pain No nausea or vomiting. Denies hematemesis Changes from previous H/P or p: No Changes Objective Vitals Vital Signs Date Time Temp Pulse Resp B/P (MAP) Pulse Ox O2 Delivery O2 Flow Rate FiO2 04/07/25 12:55 97.9 92 17 129/85 (100) 95 97.9 04/07/25 08:00 Room Air* 0 21 Intake/Output Intake and Output 04/07/25 07:00 Intake Total 1950 ml Balance 1950 ml Intake Oral 1500 ml IV Total 450 ml # Voids 8 # Bowel Movements 5 Exam General: NAD, AAOX3 Chest: lung good clear to auscultation Heart: RRR, no murmur Abdomen: non-distended, mild to moderate left lower quadrant tenderness to palpation, +BS Medications Current Medications Medications Dose Ordered Sig/Juany Route Start Time Stop Time Status Last Admin Dose Admin Cefepime HCl 50 ml @ 12.5 mls/hr Q8HR IV 04/05/25 06:00 Hold 04/05/25 05:44 12.5 MLS/HR Ceftriaxone Sodium 50 ml @ 100 mls/hr DAILY@09 IV 04/05/25 09:00 04/07/25 10:00 100 MLS/HR Acetaminophen/ Hydrocodone Bitart 1 tab Q4HP PRN PO 04/04/25 20:15 04/05/25 03:31 1 TAB Ondansetron HCl 4 mg Q4HP PRN IV 04/04/25 20:15 04/06/25 03:51 4 MG Acetaminophen 650 mg Q6HP PRN PO 04/04/25 20:15 Morphine Sulfate 2 mg Q6HPRN PRN IV 04/04/25 20:30 04/06/25 04:00 2 MG Metronidazole 100 ml @ 100 mls/hr Q8H IV 04/05/25 03:30 04/07/25 03:24 100 MLS/HR Pantoprazole Sodium 40 mg DAILY IV 04/07/25 10:00 04/07/25 10:00 40 MG Pantoprazole Sodium 40 mg DAILY IV 04/07/25 10:00 Al Hydrox/Mg Hydrox/Simethicone 30 ml Q8HP PRN PO 04/06/25 20:15 04/06/25 20:17 30 ML Laboratory Results Laboratory Tests 04/05/25 06:41 Urinalysis Test 04/04/25 16:28 Urine Color Yellow (Yellow) Urine Clarity Clear (Clear) Urine pH 5.5 (5.0-9.0) Urine Specific [place] 1.027 (1.001-1.035) Urine Protein Negative (Negative) Urine Ketones Negative (Negative) Urine Blood 2+ /uL (Negative) H Urine Nitrite Negative (Negative) Urine Bilirubin Negative (Negative) Urine Urobilinogen 3 mg/dL (Negative) H Urine Leukocyte Esterase Negative /uL (Negative) Urine RBC 5 /hpf (0 - 3) Urine Microscopic WBC 1 /HPF (0-3) Urine Squamous Epithelial Cells Few /hpf (<5) Urine Bacteria None seen /hpf (None Seen) Urine Mucus Few (None Seen) Urine Glucose Normal mg/dL (Normal) Microbiology Microbiology Date/Time Source Procedure Growth Status 04/04/25 18:46 Blood Blood Culture - Preliminary NO GROWTH AFTER 48 HOURS OF INCUBATION. Resulted Assessment/Plan Assessment/Plan Acute diverticulitis improving Abdominal pain improving Leukocytosis GERD Plan Discussed with Dr. Denney Soft diet advance as tolerated Patient is cleared for discharge from GI point of view Outpatient GI follow-up for elective colonoscopy recommended Plan discussed with: Patient, Other (RN) My Orders Orders - CAREY THAKKAR Procedure Category Date Status Time Pantoprazole PHA 04/07/25 In Process (Protonix) 10:00 Date of Service: Apr 07, 2025 Billing Provider: CAREY THAKKAR Common Visit Codes: [id number] INP/OBS CARE(HIGH) CAREY THAKKAR Apr 07, 2025 14:02
[2025-04-07] MEDS ORDERED: METR-344 PO (16:31)
[2025-04-07] MEDS ORDERED: AUG875T PO (16:31)
--- NOTE | 2025-04-07 16:34 | DVHDS2 ---
Discharge Summary Date of Admission Apr 04, 2025 at 19:59 Date of Discharge: Apr 07, 2025 Labs/Diagnostic Data: Laboratory Results Test 04/05/25 06:41 04/04/25 18:46 04/04/25 16:28 04/04/25 16:00 White Blood Count 12.9 10^3/uL (4.4-10.8) Red Blood Count 4.29 10^6/uL (4.5-5.90) Hemoglobin 13.8 g/dL (13.5-17.5) Hematocrit 38.3 % (41.0-53.0) Mean Corpuscular Volume 89.2 fL (80.0-100.0) Mean Corpuscular Hemoglobin 32.1 pg (28.0-32.0) Mean Corpuscular Hemoglobin Concent 36.0 g/dL (32.0-36.0) Red Cell Distribution Width 12.5 % (11.8-14.3) Platelet Count 179 10^3/uL (140-450) Mean Platelet Volume 6.8 fL (6.9-10.8) Neutrophils (%) (Auto) 86.7 % (37.0-80.0) Lymphocytes (%) (Auto) 7.5 % (10.0-50.0) Monocytes (%) (Auto) 5.5 % (0.0-12.0) Eosinophils (%) (Auto) 0.1 % (0.0-7.0) Basophils (%) (Auto) 0.2 % (0.0-2.0) Neutrophils # (Auto) 11.2 10 ^3/uL (1.6-8.6) Lymphocytes # (Auto) 1.0 10 ^3/uL (0.4-5.4) Monocytes # (Auto) 0.7 10 ^3/uL (0-1.3) Eosinophils # (Auto) 0 10 ^3/uL (0-0.8) Basophils # (Auto) 0 10 ^3/uL (0-0.2) Nucleated Red Blood Cells 0.0 % Sodium Level 141 mmol/L (136-145) Potassium Level 3.9 mmol/L (3.5-5.1) Chloride Level 104 mmol/L (98-107) Carbon Dioxide Level 27 mmol/L (20-31) Anion Gap 10 (5-15) Blood Urea Nitrogen 9 mg/dL (9-23) Creatinine 1.02 mg/dL (0.700-1.30) Glomerular Filtration Rate Calc 92 mL/min (>90) BUN/Creatinine Ratio 8.8 (10.0-20.0) Serum Glucose 110 mg/dL (74-106) Calcium Level 9.1 mg/dL (8.7-10.4) Lactic Acid Level 1.8 mmol/L (0.4-2.0) Urine Color Yellow (Yellow) Urine Clarity Clear (Clear) Urine pH 5.5 (5.0-9.0) Urine Specific [place] 1.027 (1.001-1.035) Urine Protein Negative (Negative) Urine Ketones Negative (Negative) Urine Blood 2+ /uL (Negative) Urine Nitrite Negative (Negative) Urine Bilirubin Negative (Negative) Urine Urobilinogen 3 mg/dL (Negative) Urine Leukocyte Esterase Negative /uL (Negative) Urine RBC 5 /hpf (0 - 3) Urine Microscopic WBC 1 /HPF (0-3) Urine Squamous Epithelial Cells Few /hpf (<5) Urine Bacteria None seen /hpf (None Seen) Urine Mucus Few (None Seen) Urine Glucose Normal mg/dL (Normal) Total Bilirubin 0.9 mg/dL (0.2-1.0) Aspartate Amino Transferase (AST) 17 U/L (13-40) Alanine Aminotransferase (ALT) 13 U/L (7-40) Alkaline Phosphatase 84 U/L (46-116) Total Protein 7.4 g/dL (5.7-8.2) Albumin 4.6 g/dL (3.2-4.8) Other Laboratory Tests 04/05/25 06:41 Brief Hx & Hospital Course: 45-year-old male with a previous history of mild diverticulitis years ago presented to the hospital with a left lower quadrant abdominal pain associated with the nausea found to have acute sigmoid colon diverticulitis with some paucity of air. Patient also has a leukocytosis. Patient was treated with the IV antibiotics initially was kept NPO then started on clear liquid diet which was advanced. Today patient has tolerated soft diet GI cleared the patient to be discharged. Patient will be given Augmentin and Flagyl for 10 more days. Patient's need outpatient elective colonoscopy please follow up with the GI as an outpatient. Condition at Discharge: Stable Final Diagnosis/Problems List 45-year-old male with a previous history of mild diverticulitis years ago presented to the hospital with a left lower quadrant abdominal pain associated with the nausea found to have 1. Acute sigmoid colon diverticulitis with some paucity of air 2. Leukocytosis likely reactive 3.Previous history of mild diverticulitis in the past years ago 4. History of tobacco use disorder 5. GERD Discharge Disposition: Home SNF Discharge Will this Physician continue t: No Discharge Instruct/Medications Diet: Cardiac 2g Na,low cholest Diet comment: Soft diet as tolerated. Activity: No Restrictions, As Tolerated Follow Up/Referral: Follow up with the PCP in 1-2 weeks Follow up with the GI for elective colonoscopy. Medications: Augmentin and Flagyl as prescribed. New Medications: Amoxicillin & Pot Clavulanate (Augmentin Tablet) 875 Mg Tb 875 MG PO BID for 10 Days, #20 TAB Metronidazole (Flagyl) 500 Mg Tab 1 TAB PO TID for 10 Days, #30 TAB Scheduled Amoxicillin & Pot Clavulanate (Augmentin Tablet), 875 MG PO BID Metronidazole (Flagyl), 1 TAB PO TID Discharge Statement: "Patient was advised to return to the ER or call 911 if any headaches, dizziness, shortness of breath, chest pain, abdominal pain, bleeding, fevers, or worsening of medical condition. Patient was counseled about treatment plan, medications, possible side effects, patientverbalized understanding. All questions were answered to the best of my ability. This discharge took greater then 30 minutes in planning, reviewing documentation, counseling the patient, and discussing with other team members." ASSESSMENT ASSESSMENT Assessment 45-year-old male with a previous history of mild diverticulitis years ago presented to the hospital with a left lower quadrant abdominal pain associated with the nausea found to have 1. Acute sigmoid colon diverticulitis with some paucity of air 2. Leukocytosis likely reactive 3.Previous history of mild diverticulitis in the past years ago 4. History of tobacco use disorder 5. GERD Date of Service: Apr 07, 2025 Billing Provider: SAIGE TANNER MD Common Visit Codes: [id number] DISCH DAY >30min SAIGE TANNER MD Apr 07, 2025 16:34
[2025-04-07 16:40] VITALS: BP 125/82; PULSE 86; RESP 17; TEMP 98.3; O2SAT 96
== END 2025-04-07 17:04 | disposition home or self-care (01) | DRG 244 ==
LOC: ER 15:05 → WEST WING 19:59 → OVERFLOW 19:59 → WEST WING 21:30
PROVIDERS: ADMIT Internal Medicine; ATTEND Internal Medicine
DX: K57.32 Diverticulitis of large intestine without perforation or abscess without bleeding (principal); D72.829 Elevated white blood cell count, unspecified; K21.9 Gastro-esophageal reflux disease without esophagitis; F17.290 Nicotine dependence, other tobacco product, uncomplicated
CPT/HCPCS: 36415; 74176; 80048; 80053; 81001; 83605; 85025; 87040; 96365; 96375; 99291; G0378; J2405; J2470; J3490